=== PATIENT | male | born 1990 | race Two or more races ===

== ENCOUNTER 2019-06-02 23:24 | Emergency (ER) | payer SELFPAY ==
[~2019-06-02] VITALS: Ht 170.2 cm; Wt 86.2 kg
[2019-06-02] MEDS ORDERED: LORazepam Inj 2mg/ml 1ml IV ONE (23:30)
--- NOTE | 2019-06-02 23:39 | Emergency Room Report ---
History of Present Illness General Chief Complaint: Substance Abuse Source: Patient Present Illness HPI 28-year-old male with no past medical history. He presents with chief complaint of numbness to his body. He thinks that he is having a stroke. He said he took some Adderall. A total of 60 mg throughout the day. He was sitting watching TV then he had pain to the back of his neck. He took a couple of Advil. He then started googling his symptoms and he said that ibuprofen increase the risk of stroke by 3 times. Then he thought he may have had a stroke. He still having numbness throughout his whole body. He thought that he may have a stroke or vasculitis or other life-threatening illnesses. [place] very thirsty. He called 911. Nothing made it better. Nothing made it worse. No fever chills but no nausea no vomiting. No focal deficit. Here he admits to using cocaine also. Allergies: Coded Allergies: No Known Allergies (Unverified , 06/02/19) Patient History Past Medical History: see triage record, old chart reviewed Past Surgical History: none Pertinent Family History: none Social History: Reports: drug use Immunizations: other Reviewed Nursing Documentation: PMH: Agreed; PSxH: Agreed Nursing Documentation-PMH Past Medical History: No Stated History Review of Systems Eye: Denies: eye pain, blurred vision ENT: Denies: ear pain, nose congestion, throat swelling Respiratory: Denies: cough, shortness of breath Cardiovascular: Denies: chest pain, palpitations Gastrointestinal: Denies: abdominal pain, diarrhea, nausea, vomiting Musculoskeletal: Denies: back pain, joint pain Skin: Denies: rash Neurological: Reports: numbness, paresthesia; Denies: headache Endocrine: Denies: increased thirst, increased urine Hematologic/Lymphatic: Denies: easy bruising All Other Systems: negative except mentioned in HPI Physical Exam Vital Signs Date Time Temp Pulse Resp B/P (MAP) Pulse Ox O2 Delivery O2 Flow Rate FiO2 06/02/19 23:26 97.9 146 28 154/97 (116) 98 Room Air Vitals with tachycardia Sp02 EP Interpretation: reviewed, normal General Appearance: well appearing, no apparent distress, alert Head: normocephalic, atraumatic Eyes: bilateral eye PERRL, bilateral eye EOMI ENT: hearing grossly normal, normal pharynx Neck: full range of motion, supple, no meningismus Respiratory: chest non-tender, lungs clear, normal breath sounds Cardiovascular #1: regular rate, rhythm, no murmur Gastrointestinal: normal bowel sounds, non tender, no mass, no organomegaly, no bruit, non-distended Musculoskeletal: back normal, gait/station normal, normal range of motion Neurologic: alert, oriented x3 Psychiatric: anxious Medical Decision Making Diagnostic Impression: Primary Impression: Substance abuse Additional Impressions: Rhabdomyolysis Qualified Codes: M62.82 - Rhabdomyolysis MARIANO (acute kidney injury) Panic attack ER Course Patient presents with panic attack from substance abuse. Also evidence of kidney injury with elevated creatinine. Better after Ativan. He is calm now. Heart rate in the 90s. No evidence of CVA or TIA. Will discharge home. Rhythm Strip Diag. Results EP Interpretation: yes Rate: 90 Rhythm: NSR, no PVC's, no ectopy Last Vital Signs Date Time Temp Pulse Resp B/P (MAP) Pulse Ox O2 Delivery O2 Flow Rate FiO2 06/02/19 23:26 97.9 146 28 154/97 (116) 98 Room Air Status: improved Disposition: HOME, SELF-CARE Condition: Stable Additional Instructions: Increase fluids. Avoid Adderall and drugs. Follow-up with your doctor in 7 days. You will need repeat blood test on your kidney function. Return if symptoms worsen. Justin Wilson MD Jun 02, 2019 23:39
[2019-06-02 23:44] LABS: BASOPHILS % (AUTO) 1.8 % (0.0-2.0); EOSINOPHILS % (AUTO) 8.1 % (0.0-3.0); HEMATOCRIT 32.6 % (42.0-52.0); HEMOGLOBIN 11.3 G/DL (14.2-18.0); LYMPHOCYTES % (AUTO) 32.8 % (20.0-45.0); MEAN CORPUSCULAR VOLUME 91 FL (80-99); MONOCYTES % (AUTO) 8.3 % (1.0-10.0); NEUTROPHILS % (AUTO) 49.1 % (45.0-75.0); PLATELET COUNT 126 K/UL (150-450); RED BLOOD COUNT 3.57 M/UL (4.70-6.10); RED CELL DISTRIBUTION WIDTH 11.8 % (11.6-14.8)
--- NOTE | 2019-06-02 23:45 | NUR ---
ED Nurse Note: Recieved pt GAIL from home, here with c/o increased atgitation and restlessness, pt takes aderall medication, states he took same as usual but now has these s/s, pt is very agitated, speaking fast and holding on to wall, also stating his veins are constricted and speaking bizzarrily, pt wont sit still or sit down, has increased heart rate at about 125, denies CP, no sob or labored breathing, pt has patent saline lock, will medicate as ordered and closely monitor.
[2019-06-02 23:53] LABS: ANION GAP 13 mmol/L (5-15); BLOOD UREA NITROGEN 21 mg/dL (7-18); CALCIUM 9.8 MG/DL (8.5-10.1); CARBON DIOXIDE 25 MMOL/L (21-32); CHLORIDE 102 MMOL/L (98-107); CREATININE 1.9 MG/DL (0.55-1.30); POTASSIUM 4.2 MMOL/L (3.5-5.1); SODIUM 140 MMOL/L (136-145)
[2019-06-03] VITALS: BP 151/88
[2019-06-03] MEDS ORDERED: LORazepam Inj 2mg/ml 1ml IV ONE
[2019-06-03 00:08] LABS: CKMB 4.5 NG/ML (0.0-3.6); CREATINE KINASE 720 U/L (26-308)
[2019-06-03 00:45] VITALS: BP 131/92
[2019-06-03 01:25] VITALS: BP 131/92
--- NOTE | 2019-06-03 01:25 | NUR ---
ER DISCHARGE NOTE: Patient is cleared to be discharged per ERMD, pt is aox4, on room air, with stable vital signs. pt was given dc and prescription instructions, pt was able to verbalize understanding, pt id band and iv site removed without complications. pt is able to ambulate with steady gait. pt took all belongings. with sister to drive.
== END 2019-06-03 01:25 | disposition home or self-care (01) ==
LOC: EDBD 23:24 → EMR 23:37
DX: F14.10 Cocaine abuse, uncomplicated (principal); M62.82 Rhabdomyolysis; N17.9 Acute kidney failure, unspecified; F41.0 Panic disorder [episodic paroxysmal anxiety]
CPT/HCPCS: 36415; 80048; 82550; 82553; 85025; 96361; 96374; 99284